=== PATIENT | female | born 1945 ===

== ENCOUNTER 2024-07-16 10:09 | Inpatient (IN) | payer MEDICARE ==
[2024-07-16] MEDS ORDERED: Sodium Chloride 0.9% 2.5 ML Syringe FLUSH PRN (10:51)
[2024-07-16] MEDS ORDERED: Sodium Chloride 0.9% 10 ML Syringe FLUSH PRN (10:51)
[2024-07-16] MEDS ORDERED: Sodium Chloride 0.9% 20 ML SDV IV PRN (10:51)
[2024-07-16 11:47] LABS: HEMATOCRIT 33.1 % (37.0-47.0); HEMOGLOBIN 11.1 g/dL (12.0-16.0); MEAN CORPUSCULAR HGB CONC 33.5 g/dL (32.0-36.0); MEAN CORPUSCULAR VOLUME 92.5 fL (83.0-99.0); MEAN PLATELET VOLUME 10.8 fL (9.4-12.3); PLATELET COUNT,PLT 262 K/uL (150-400); RED BLOOD CELL COUNT 3.58 M/uL (4.10-5.30); WHITE BLOOD CELL COUNT,WBC 29.87 K/uL (3.9-11.3)
[2024-07-16] MEDS ORDERED: cefTRIAXone 2 GM in Sodium Chloride 0.9% 100 ML IV ONE (12:00)
[2024-07-16 12:02] LABS: INR 1.11 (0.86-1.11); PTT,PARTIAL THROMBOPLSTIN TIME 28.4 SEC (23.9-30.7)
[2024-07-16 12:15] LABS: LYMPHOCYTES ABSOLUTE MAN 2.09 K/uL (1.00-4.80); LYMPHOCYTES PERCENT MAN 7 % (24-44); MONOCYTES ABSOLUTE MAN 2.99 K/uL (0.00-0.80); MONOCYTES PERCENT MAN 10 % (0-8); SEG NEUTROPHILS ABSOLUTE MAN 24.79 K/uL (1.80-7.70); SEG NEUTROPHILS PERCENT MAN 83 % (41-71)
[2024-07-16 12:22] LABS: LACTIC ACID 1.4 mmol/L (0.4-2.0)
[2024-07-16 12:30] LABS: A/G RATIO 0.6 (0.9-1.6); ALANINE AMINOTRANSFERASE,ALT 7 IU/L (14-63); ALBUMIN 2.4 g/dL (3.4-5.0); ALKALINE PHOSPHATASE 115 U/L (46-116); ASPARTATE AMNIOTRANSFERASE,AST 18 IU/L (15-37); BILIRUBIN TOTAL 0.7 mg/dL (0.2-1.0); BLOOD UREA NITROGEN,BUN 16 mg/dL (7.0-18.0); CARBON DIOXIDE,CO2 21.7 mmol/L (21.0-32.0); CHLORIDE,CL 102 mmol/L (98-107); GLUCOSE RANDOM 107 mg/dL (74-106); MAGNESIUM 1.7 mg/dL (1.8-2.4); POTASSIUM,K 3.7 mmol/L (3.5-5.1); PROTEIN TOTAL,TP 6.5 g/dL (6.4-8.2); SODIUM,NA 138 mmol/L (136-145)
[2024-07-16 12:43] LABS: ESTIMATED GFR 58 mL/min (>60)
[2024-07-16] MEDS: cefTRIAXone 2 GM in Sodium Chloride 0.9% 100 ML IV ONE (13:36)
[2024-07-16] MEDS: VANCOmycin 2 GM in Sodium Chloride 0.9% 500 ML IV ONE (16:35)
[2024-07-16] MEDS: Acetaminophen 325 MG Tab PO ONE (17:27)
[2024-07-16] MEDS: Sodium Chloride 0.9% 1,000 ML IV ONE (17:27)
[2024-07-16] MEDS ORDERED: Morphine 2 MG/ML SYRINGE IVPUSH PRN (17:28)
[2024-07-16] MEDS ORDERED: Naloxone 0.4 MG/ML SDV IVPUSH PRN (17:28)
[2024-07-16] MEDS ORDERED: Albuterol/Ipratropium 3.0-0.5 MG/3 ML Neb Soln NEB PRN (17:28)
[2024-07-16] MEDS ORDERED: Docusate Sodium 100 MG Cap PO PRN (17:28)
[2024-07-16] MEDS ORDERED: Ondansetron 4 MG/2 ML SDV IVPUSH PRN (17:28)
[2024-07-16] MEDS ORDERED: Polyethylene Glycol 3350 Powder 17 GM Packet PO PRN (17:28)
[2024-07-16] MEDS: Sodium Chloride 0.9% 1,000 ML IV SCH (20:35)
[2024-07-16] MEDS: Ketorolac 30 MG/ML SDV IV PRN (20:35)
[2024-07-16] MEDS ORDERED: Cefepime 2 GM in Sodium Chloride 0.9% 50 ML IV SCH (21:30)
[2024-07-17] MEDS: Cefepime 2 GM in Sodium Chloride 0.9% 50 ML IV SCH ×2 (00:13→11:09)
[2024-07-17] MEDS: MAGNESIUM SULF ONE (00:15)
[2024-07-17] MEDS: WAT ONE (00:15)
[2024-07-17] MEDS: Magnesium Sulf/Wat 4 GM/100 mL 4 GM in Premix Bag 1 BAG IV ONE (01:50)
[2024-07-17] MEDS: Acetaminophen 325 MG Tab PO PRN (05:55)
[2024-07-17 06:38] LABS: BASOPHILS ABSOLUTE AUTO 0.04 K/uL (0.00-0.20); BASOPHILS PERCENT AUTO 0.2 % (0.0-1.0); EOSINOPHILS ABSOLUTE AUTO 0.06 K/uL (0.00-0.45); EOSINOPHILS PERCENT AUTO 0.2 % (0.0-6.0); HEMATOCRIT 32.9 % (37.0-47.0); HEMOGLOBIN 10.8 g/dL (12.0-16.0); IMMATURE GRAN ABSOLUTE AUTO 0.44 K/uL (0.00-0.05); IMMATURE GRAN PERCENT AUTO 1.7 % (0.0-0.4); LYMPHOCYTES ABSOLUTE AUTO 1.13 K/uL (1.00-4.80); LYMPHOCYTES PERCENT AUTO 4.5 % (24.0-44.0); MEAN CORPUSCULAR HEMOGLOBIN 30.5 pg (28.0-32.0); MEAN CORPUSCULAR HGB CONC 32.8 g/dL (32.0-36.0); MEAN CORPUSCULAR VOLUME 92.9 fL (83.0-99.0); MEAN PLATELET VOLUME 10.3 fL (9.4-12.3); NEUTROPHILS ABSOLUTE AUTO 22.01 K/uL (1.80-7.70); NEUTROPHILS PERCENT AUTO 87.4 % (41.0-71.0); PLATELET COUNT,PLT 232 K/uL (150-400); RED BLOOD CELL COUNT 3.54 M/uL (4.10-5.30); WHITE BLOOD CELL COUNT,WBC 25.18 K/uL (3.9-11.3)
[2024-07-17 07:10] LABS: A/G RATIO 0.5 (0.9-1.6); ALKALINE PHOSPHATASE 113 U/L (46-116); BILIRUBIN TOTAL 0.5 mg/dL (0.2-1.0); BLOOD UREA NITROGEN,BUN 18 mg/dL (7.0-18.0); CALCIUM 8.3 mg/dL (8.5-10.1); CHLORIDE,CL 103 mmol/L (98-107); CREATININE 0.9 mg/dL (0.6-1.0); GLUCOSE RANDOM 105 mg/dL (74-106); MAGNESIUM 2.9 mg/dL (1.8-2.4); PHOSPHORUS 3.5 mg/dL (2.6-4.7); POTASSIUM,K 3.2 mmol/L (3.5-5.1); PROTEIN TOTAL,TP 5.9 g/dL (6.4-8.2); SODIUM,NA 137 mmol/L (136-145)
[2024-07-17 07:11] LABS: ESTIMATED GFR 66 mL/min (>60)
[2024-07-17 07:21] LABS: ALANINE AMINOTRANSFERASE,ALT 13 IU/L (14-63); ASPARTATE AMNIOTRANSFERASE,AST 15 IU/L (15-37)
[2024-07-17] MEDS: Acetaminophen/HYDROcodone 108-2.5 MG/5 ML Soln 15 ML UD Cup PO PRN (11:06)
[2024-07-17 11:32] LABS: APPEARANCE,URINE SLT CLOUDY; COLOR,URINE YELLOW; GLUCOSE,URINE NEGATIVE (NEGATIVE); KETONES,URINE 15 mg/dL (NEGATIVE); LEUKOCYTE ESTERASE,URINE NEGATIVE (NEGATIVE); NITRITE,URINE NEGATIVE (NEGATIVE); OCCULT BLOOD,URINE LARGE (NEGATIVE); PH,URINE 5.5 (5.0-8.0); PROTEIN,URINE TRACE mg/dL (NEGATIVE); UROBILINOGEN,URINE 0.2 EU/dL (<2.0)
[2024-07-17] MEDS: Acetaminophen 325 MG Tab PO SCH (11:35)
[2024-07-17 11:46] LABS: BILIRUBIN,URINE SMALL (NEGATIVE)
[2024-07-17 11:48] LABS: AMORPHOUS SEDIMENT,URINE LIGHT (NEGATIVE); BACTERIA,URINE FEW (NEGATIVE); EPITHELIAL CELLS,URINE RARE (NONE-FEW)
[2024-07-17] MEDS: Calcium Carbonate 500 MG Tab.Chew PO PRN (19:26)
[2024-07-17] MEDS: atorvaSTATin 40 MG Tab PO SCH (20:37)
[2024-07-18 05:56] LABS: HEMATOCRIT 31.4 % (37.0-47.0); HEMOGLOBIN 10.4 g/dL (12.0-16.0); MEAN CORPUSCULAR HEMOGLOBIN 30.9 pg (28.0-32.0); MEAN CORPUSCULAR HGB CONC 33.1 g/dL (32.0-36.0); MEAN CORPUSCULAR VOLUME 93.2 fL (83.0-99.0); MEAN PLATELET VOLUME 10.5 fL (9.4-12.3); PLATELET COUNT,PLT 232 K/uL (150-400); RED BLOOD CELL COUNT 3.37 M/uL (4.10-5.30); WHITE BLOOD CELL COUNT,WBC 21.54 K/uL (3.9-11.3)
[2024-07-18] MEDS: Levothyroxine 112 MCG Tab PO SCH (06:14)
[2024-07-18 06:38] LABS: A/G RATIO 0.4 (0.9-1.6); ALBUMIN 1.7 g/dL (3.4-5.0); BILIRUBIN TOTAL 0.4 mg/dL (0.2-1.0); CALCIUM 8.5 mg/dL (8.5-10.1); CARBON DIOXIDE,CO2 21.1 mmol/L (21.0-32.0); CREATININE 0.8 mg/dL (0.6-1.0); EST CRCL DRUG DOSING (CG) 55.13 mL/min; POTASSIUM,K 3.1 mmol/L (3.5-5.1); PROTEIN TOTAL,TP 5.6 g/dL (6.4-8.2)
[2024-07-18 06:45] LABS: BAND ABSOLUTE MAN 3.23; BAND PERCENT MAN 15 %; SEG NEUTROPHILS ABSOLUTE MAN 13.79 K/uL (1.80-7.70); SEG NEUTROPHILS PERCENT MAN 64 % (41-71)
[2024-07-18 06:46] LABS: BASOPHILS PERCENT MAN 0 % (0-1); EOSINOPHILS ABSOLUTE MAN 0.43 K/uL (0.00-0.45); EOSINOPHILS PERCENT MAN 2 % (0-6); LYMPHOCYTES PERCENT MAN 13 % (24-44); MONOCYTES ABSOLUTE MAN 1.29 K/uL (0.00-0.80); MONOCYTES PERCENT MAN 6 % (0-8)
[2024-07-18] MEDS: levETIRAcetam 500 MG Tab PO SCH (09:23)
[2024-07-18] MEDS: Potassium Chloride 10% 20 MEQ/15 ML Soln 15 ML UD Cup PO SCH (10:37)
[2024-07-18] MEDS: VANCOmycin 125 MG Cap PO SCH (10:38)
[2024-07-18] MEDS: Magnesium Sulf/Wat 4 GM/100 mL 4 GM in Premix Bag 1 BAG IV ONE (10:38)
[2024-07-18] MEDS: Potassium Chloride 20 MEQ Tab.ER PO SCH (10:47)
[2024-07-19] MEDS: Dicyclomine 10 MG Cap PO ONE (00:57)
[2024-07-19 06:18] LABS: BASOPHILS ABSOLUTE AUTO 0.07 K/uL (0.00-0.20); BASOPHILS PERCENT AUTO 0.3 % (0.0-1.0); EOSINOPHILS ABSOLUTE AUTO 0.16 K/uL (0.00-0.45); EOSINOPHILS PERCENT AUTO 0.7 % (0.0-6.0); HEMATOCRIT 32.6 % (37.0-47.0); IMMATURE GRAN ABSOLUTE AUTO 0.11 K/uL (0.00-0.05); IMMATURE GRAN PERCENT AUTO 0.5 % (0.0-0.4); LYMPHOCYTES ABSOLUTE AUTO 1.63 K/uL (1.00-4.80); LYMPHOCYTES PERCENT AUTO 7.2 % (24.0-44.0); MEAN CORPUSCULAR HEMOGLOBIN 31.3 pg (28.0-32.0); MEAN CORPUSCULAR HGB CONC 33.7 g/dL (32.0-36.0); MEAN CORPUSCULAR VOLUME 92.9 fL (83.0-99.0); MEAN PLATELET VOLUME 10.3 fL (9.4-12.3); MONOCYTES ABSOLUTE AUTO 1.41 K/uL (0.00-0.80); MONOCYTES PERCENT AUTO 6.2 % (0.0-8.0); NEUTROPHILS PERCENT AUTO 85.1 % (41.0-71.0); PLATELET COUNT,PLT 284 K/uL (150-400); RED BLOOD CELL COUNT 3.51 M/uL (4.10-5.30); WHITE BLOOD CELL COUNT,WBC 22.78 K/uL (3.9-11.3)
[2024-07-19 06:51] LABS: A/G RATIO 0.4 (0.9-1.6); ALBUMIN 1.8 g/dL (3.4-5.0); BILIRUBIN TOTAL 0.4 mg/dL (0.2-1.0); CALCIUM 8.8 mg/dL (8.5-10.1); CARBON DIOXIDE,CO2 19.8 mmol/L (21.0-32.0); CREATININE 0.8 mg/dL (0.6-1.0); EST CRCL DRUG DOSING (CG) 55.13 mL/min; MAGNESIUM 2.4 mg/dL (1.8-2.4); POTASSIUM,K 4.4 mmol/L (3.5-5.1); PROTEIN TOTAL,TP 6.1 g/dL (6.4-8.2)
[2024-07-19] MEDS: Levothyroxine 100 MCG Tab PO SCH (07:54)
[2024-07-19] MEDS: cefTRIAXone 1 GM in Sodium Chloride 0.9% 50 ML IV SCH (07:54)
[2024-07-19] MEDS: Dicyclomine 10 MG Cap PO PRN (14:25)
[2024-07-20 06:36] LABS: BASOPHILS ABSOLUTE AUTO 0.05 K/uL (0.00-0.20); BASOPHILS PERCENT AUTO 0.4 % (0.0-1.0); EOSINOPHILS PERCENT AUTO 3.5 % (0.0-6.0); HEMATOCRIT 32.4 % (37.0-47.0); HEMOGLOBIN 10.7 g/dL (12.0-16.0); IMMATURE GRAN ABSOLUTE AUTO 0.16 K/uL (0.00-0.05); IMMATURE GRAN PERCENT AUTO 1.1 % (0.0-0.4); LYMPHOCYTES ABSOLUTE AUTO 2.23 K/uL (1.00-4.80); LYMPHOCYTES PERCENT AUTO 15.6 % (24.0-44.0); MEAN CORPUSCULAR HEMOGLOBIN 30.7 pg (28.0-32.0); MEAN CORPUSCULAR VOLUME 93.1 fL (83.0-99.0); MEAN PLATELET VOLUME 10.6 fL (9.4-12.3); MONOCYTES ABSOLUTE AUTO 1.02 K/uL (0.00-0.80); MONOCYTES PERCENT AUTO 7.2 % (0.0-8.0); NEUTROPHILS PERCENT AUTO 72.2 % (41.0-71.0); PLATELET COUNT,PLT 281 K/uL (150-400); RED BLOOD CELL COUNT 3.48 M/uL (4.10-5.30); WHITE BLOOD CELL COUNT,WBC 14.26 K/uL (3.9-11.3)
[2024-07-20 07:21] LABS: A/G RATIO 0.4 (0.9-1.6); ALBUMIN 1.7 g/dL (3.4-5.0); BILIRUBIN TOTAL 0.3 mg/dL (0.2-1.0); CALCIUM 8.7 mg/dL (8.5-10.1); CARBON DIOXIDE,CO2 21.8 mmol/L (21.0-32.0); CREATININE 0.7 mg/dL (0.6-1.0); EST CRCL DRUG DOSING (CG) 63.01 mL/min; POTASSIUM,K 4.1 mmol/L (3.5-5.1); PROTEIN TOTAL,TP 5.9 g/dL (6.4-8.2)
[2024-07-21 05:45] LABS: BASOPHILS ABSOLUTE AUTO 0.06 K/uL (0.00-0.20); BASOPHILS PERCENT AUTO 0.6 % (0.0-1.0); EOSINOPHILS ABSOLUTE AUTO 0.31 K/uL (0.00-0.45); HEMATOCRIT 34.2 % (37.0-47.0); HEMOGLOBIN 11.1 g/dL (12.0-16.0); IMMATURE GRAN ABSOLUTE AUTO 0.27 K/uL (0.00-0.05); IMMATURE GRAN PERCENT AUTO 2.6 % (0.0-0.4); LYMPHOCYTES ABSOLUTE AUTO 1.87 K/uL (1.00-4.80); LYMPHOCYTES PERCENT AUTO 18.2 % (24.0-44.0); MEAN CORPUSCULAR HEMOGLOBIN 30.4 pg (28.0-32.0); MEAN CORPUSCULAR HGB CONC 32.5 g/dL (32.0-36.0); MEAN CORPUSCULAR VOLUME 93.7 fL (83.0-99.0); MEAN PLATELET VOLUME 10.1 fL (9.4-12.3); MONOCYTES ABSOLUTE AUTO 0.96 K/uL (0.00-0.80); MONOCYTES PERCENT AUTO 9.3 % (0.0-8.0); NEUTROPHILS ABSOLUTE AUTO 6.83 K/uL (1.80-7.70); NEUTROPHILS PERCENT AUTO 66.3 % (41.0-71.0); PLATELET COUNT,PLT 304 K/uL (150-400); RED BLOOD CELL COUNT 3.65 M/uL (4.10-5.30)
[2024-07-21 06:02] LABS: CALCIUM 8.6 mg/dL (8.5-10.1); CREATININE 0.7 mg/dL (0.6-1.0); EST CRCL DRUG DOSING (CG) 63.01 mL/min; POTASSIUM,K 3.7 mmol/L (3.5-5.1)
== END 2024-07-21 16:00 | disposition home or self-care (01) | DRG 371 ==
LOC: MW.ED 10:09 → MW.MS 16:35
PROVIDERS: ADMIT Family Medicine; ATTEND Family Medicine
DX: A04.72 Enterocolitis due to Clostridium difficile, not specified as recurrent (principal); J18.9 Pneumonia, unspecified organism; Z79.899 Other long term (current) drug therapy; I69.351 Hemiplegia and hemiparesis following cerebral infarction affecting right dominant side; Z66 Do not resuscitate; E86.0 Dehydration; E03.9 Hypothyroidism, unspecified; E87.6 Hypokalemia; E83.42 Hypomagnesemia; E88.09 Other disorders of plasma-protein metabolism, not elsewhere classified; Y95 Nosocomial condition; R62.7 Adult failure to thrive; R45.1 Restlessness and agitation; Z98.890 Other specified postprocedural states; Z91.040 Latex allergy status; Z91.013 Allergy to seafood; I69.322 Dysarthria following cerebral infarction; I69.392 Facial weakness following cerebral infarction
CPT/HCPCS: 70450; 71045; 72125; 80053; 83605; 83735; 84484; 85025; 85610; 85730; 87040 ×2; 87428; J0696; 36415; 80048; 81001; 84100; 87324; 94668; 97163-GP; 97165-GO; 97530-GP; 99222; 99232; 99239; 99284; A9270-GY; J0692; J1885; J3475; J3490; J7030; J7040